=== PATIENT | female | born 1995 | race Hispanic/Latino ===

== ENCOUNTER 2021-04-01 10:13 | Outpatient (CLI) | payer OTHER | END 2021-04-01 10:14 | disposition home or self-care (01) | LOC: CSHULT 10:13 | PROVIDERS: ATTEND Family Medicine | DX: R10.11 Right upper quadrant pain (principal) | CPT/HCPCS: 76700 ==

== ENCOUNTER 2022-11-02 10:09 | Day surgery (SDC) | payer OTHER ==
[2022-11-01 12:48] VITALS: BMI 31.1
[2022-11-02 11:14] LABS: BHCG - Serum Negative (NEGATIVE); Pregs Control Background? CLEAR/WHITE (CLR/WHITE); Pregs Control Bar Appear? YES (CONTROL BAR)
[2022-11-02 11:21] LABS: Anion Gap 12 mmol/L (10-20); BUN (Urea Nitrogen) 11 mg/dL (7.0-18.7); Calc. Creatinine Clearance 157 mL/min (70-130); Calcium 8.5 mg/dL (7.8-10.44); Carbon Dioxide 25 mmol/L (22-29); Chloride 108 mmol/L (98-107); Estimated GFR 124; Glucose 85 mg/dL (70-105); Potassium 3.9 mmol/L (3.5-5.1); Sodium 141 mmol/L (136-145)
[2022-11-02] MEDS ORDERED: Bupivacaine 0.25% HCL 30 ML VIAL ONE (11:28)
[2022-11-02] MEDS ORDERED: Lidocaine 1% (PF) 30 ML VIAL ONE (11:29)
[2022-11-02] MEDS ORDERED: CEFAZOLIN 2 GM VIAL ONE (11:52)
[2022-11-02] MEDS ORDERED: Midazolam HCl 2 mg/2 ml Vial ONE (12:06)
[2022-11-02] MEDS ORDERED: fentaNYL 50 mcg/mL 1 mL Vial ONE (12:06)
[2022-11-02] MEDS ORDERED: PROPOFOL 20 ML ONE (12:06)
[2022-11-02] MEDS ORDERED: PROPOFOL 40 ML ONE (12:06)
[2022-11-02] MEDS ORDERED: Lidocaine 2% PF 5 ML VIAL ONE (12:07)
== END 2022-11-02 13:35 | disposition home or self-care (01) ==
LOC: CSHSDC 10:09
PROVIDERS: ATTEND Surgery Surgery of the Hand
PROC: 0PSV34Z Reposition Left Finger Phalanx with Internal Fixation Device, Percutaneous Approach (ICD-10-PCS; principal; 2022-11-02)
DX: S62.637A Displaced fracture of distal phalanx of left little finger, initial encounter for closed fracture (principal); M20.012 Mallet finger of left finger(s); F17.200 Nicotine dependence, unspecified, uncomplicated; W23.1XXA Caught, crushed, jammed, or pinched between stationary objects, initial encounter
CPT/HCPCS: 80048; 84703; C1713; J2001; J2250; J2704; J3010; S0020

== ENCOUNTER 2023-09-21 12:06 | Day surgery (SDC) | payer MEDICAID, OTHER ==
[2023-09-21 12:34] VITALS: BMI 31.8
[2023-09-21 13:14] LABS: Bilirubin Neg (Negative); Blood, Urine Negative (Negative); Clarity Slightly Cloudy (Clear); Glucose, Urine (Dipstick) Normal (Negative); Ketone, Urine Negative (Negative); Leukocyte 25 (Negative); Nitrite Negative (Negative); Protein, Urine (Dipstick) 15 mg/dl (Neg-Trace); Specific Gravity, Urine 1.015 (1.005-1.030)
[2023-09-21] MEDS: Lactated Ringer's 1,000 ML IV SCH (13:20)
[2023-09-21 13:38] LABS: RBC/HPF 0-3 HPF (0-3)
[2023-09-21 13:39] LABS: Bacteria/HPF 1+ HPF (None Seen); CAUTI Indications for Culture Pregnancy
[2023-09-21 13:40] LABS: Urine Culture Reflex Yes Yes
== END 2023-09-21 14:25 | disposition home or self-care (01) ==
LOC: CSHLD/OP 12:06
PROVIDERS: ATTEND Family Medicine
DX: O99.891 Other specified diseases and conditions complicating pregnancy (principal); R10.9 Unspecified abdominal pain; O09.43 Supervision of pregnancy with grand multiparity, third trimester; O99.283 Endocrine, nutritional and metabolic diseases complicating pregnancy, third trimester; E86.0 Dehydration; O00.01 Abdominal pregnancy with intrauterine pregnancy; Z3A.32 32 weeks gestation of pregnancy; Z79.899 Other long term (current) drug therapy
CPT/HCPCS: 81001; 87086

== ENCOUNTER 2023-09-29 10:53 | Day surgery (SDC) | payer MEDICAID ==
[2023-09-29 11:14] VITALS: BMI 32.0
[2023-09-29 13:32] LABS: #Basophils 0.01 10x3/uL (0.0-0.2); #Eosinphils 0.12 10x3/uL (0.0-0.5); #Monocytes 0.49 10x3/uL (0.0-1.1); #Neutrophils 7.01 10x3/uL (1.5-8.4); %Basophils 0.1 % (0.0-2.0); %Eosinophils 1.2 % (0.0-6.0); %Lymphocytes 22.6 % (18.0-47.0); %Monocytes 4.9 % (0.0-10.0); %Neutrophils 70.7 % (40.0-75.0); Hematocrit 30.6 % (34.9-44.5); Hemoglobin 10.6 g/dL (12.0-15.5); Mean Corpuscular HGB CONC 34.6 g/dL (32.0-36.0); Mean Corpuscular Volume 89.5 fL (81.6-98.3); Platelet Count 230 10x3/uL (150-450); RBC Distribution Width 12.1 % (11.5-14.5); Red Blood Cell (RBC) Count 3.42 10x6/uL (3.90-5.03); White Blood Cell (WBC) Count 9.9 10x3/uL (3.5-10.5)
[2023-09-29 14:00] LABS: ALT (SGPT) 23 U/L (8-55); AST (SGOT) 28 U/L (5-34); Albumin 2.4 g/dL (3.5-5.0); Alkaline Phosphatase 100 U/L (40-110); Anion Gap 12 mmol/L (10-20); BUN (Urea Nitrogen) 7 mg/dL (7.0-18.7); Bilirubin, Total 0.2 mg/dL (0.2-1.2); Calc. Creatinine Clearance 179 mL/min (70-130); Calcium 8.2 mg/dL (7.8-10.44); Carbon Dioxide 22 mmol/L (22-29); Chloride 105 mmol/L (98-107); Estimated GFR 126; Globulin 3.6 g/dL (2.4-3.5); Glucose 102 mg/dL (70-105); Potassium 3.6 mmol/L (3.5-5.1); Sodium 135 mmol/L (136-145)
== END 2023-09-29 14:27 | disposition home or self-care (01) ==
LOC: CSHLD/OP 10:53
PROVIDERS: ATTEND Family Medicine
DX: O99.891 Other specified diseases and conditions complicating pregnancy (principal); R51.9 Headache, unspecified; O99.013 Anemia complicating pregnancy, third trimester; O00.01 Abdominal pregnancy with intrauterine pregnancy; O12.13 Gestational proteinuria, third trimester; Z79.899 Other long term (current) drug therapy; Z79.82 Long term (current) use of aspirin; Z3A.33 33 weeks gestation of pregnancy
CPT/HCPCS: 36415; 80053; 82570; 82728; 84156; 85025

== ENCOUNTER 2024-12-31 14:53 | Emergency (ER) | payer MEDICAID | END 2024-12-31 15:27 | disposition home or self-care (01) | LOC: CSHERS 14:53 | DX: L03.012 Cellulitis of left finger (principal) | CPT/HCPCS: 99283 ==